=== PATIENT | male | born 1950 | race Caucasian/White ===

== ENCOUNTER 2017-05-15 14:52 | Emergency (ER) | payer MEDICARE, OTHER ==
--- NOTE | 2017-05-15 15:40 | ER Document Report ---
ED Medical Screen (RME) - General Chief Complaint: Abdominal Pain Stated Complaint: SORE THROAT,ABDOMINAL PAIN Time Seen by Provider: 05/15/17 15:39 Mode of Arrival: Ambulatory Information source: Patient TRAVEL OUTSIDE OF THE [place] IN LAST 30 DAYS: No - HPI Patient complains to provider of: abd pain; sore throat Onset: Other - pt. with penile implant i month ago with abd pain, hematuria, and fever in the past 1-2 days - Related Data Allergies/Adverse Reactions: No Known Allergies Allergy (Verified 05/15/17 14:53) Past Medical History Endocrine Medical History: Reports: Hx Diabetes Mellitus Type 2 Physical Exam - Vital signs Vitals: Temp Pulse Resp BP Pulse Ox 99.7 F 91 18 113/64 97 05/15/17 15:31 05/15/17 15:31 05/15/17 15:31 05/15/17 15:31 05/15/17 15:31 Course - Vital Signs Vital signs: Temp Pulse Resp BP Pulse Ox 99.7 F 91 18 113/64 97 05/15/17 15:31 05/15/17 15:31 05/15/17 15:31 05/15/17 15:31 05/15/17 15:31
[2017-05-15 16:29] LABS: ABSOLUTE LYMPHOCYTES (AUTO) 0.7 10^3/uL (0.5-4.7); ABSOLUTE MONOCYTES (AUTO) 0.9 10^3/uL (0.1-1.4); ABSOLUTE NEUT (AUTO) 9.8 10^3/uL (1.7-8.2); BASOPHILS % (AUTO) 0.4 % (0-2); EOSINOPHILS % (AUTO) 0.1 % (0-6); HEMATOCRIT 40.5 % (37.9-51.0); HEMOGLOBIN 13.4 g/dL (13.5-17.0); LYMPHOCYTES % (AUTO) 6.4 % (13-45); MEAN CORPUSCULAR HGB CONC 33.2 g/dL (32.0-36.0); MEAN CORPUSCULAR VOLUME 81 fl (80-97); MONOCYTES % (AUTO) 8.2 % (3-13); PLATELET COUNT 171 10^3/uL (150-450); RED BLOOD COUNT 4.98 10^6/uL (4.35-5.55); RED CELL DISTRIBUTION WIDTH 14.7 % (11.5-14.0); SEGMENTED NEUTROPHILS % (AUTO) 84.9 % (42-78); TOTAL CELLS COUNTED % (AUTO) 100 %; WHITE BLOOD COUNT 11.6 10^3/uL (4.0-10.5)
[2017-05-15 16:37] LABS: APPEARANCE,URINE SLIGHTLY-CLOUDY; BILIRUBIN,URINE NEGATIVE (NEGATIVE); COLOR,URINE YELLOW; GLUCOSE, URINE 150 mg/dL (NEGATIVE); KETONES,URINE NEGATIVE (NEGATIVE); LEUKOCYTE ESTERASE,URINE NEGATIVE (NEGATIVE); NITRITE,URINE NEGATIVE (NEGATIVE); PROTEIN,URINE 100 mg/dL (NEGATIVE); URINE SPECIFIC GRAVITY 1.024
[2017-05-15 16:46] LABS: ALANINE AMINOTRANSFERASE 25 U/L (21-72); ALBUMIN 4.1 g/dL (3.5-5.0); ALKALINE PHOSPHATASE 78 U/L (38-126); ANION GAP 13 (5-19); ASPARTATE AMINO TRANSFERASE 12 U/L (17-59); BILIRUBIN,DIRECT 0.2 mg/dL (0.0-0.4); BILIRUBIN,TOTAL 1.1 mg/dL (0.2-1.3); BLOOD UREA NITROGEN 21 mg/dL (7-20); CALCIUM 9.7 mg/dL (8.4-10.2); CARBON DIOXIDE 25 mmol/L (22-30); CHLORIDE 95 mmol/L (98-107); GLUCOSE 170 mg/dL (75-110); POTASSIUM 4.4 mmol/L (3.6-5.0); SODIUM 132.6 mmol/L (137-145); TOTAL PROTEIN 6.3 g/dL (6.3-8.2)
--- NOTE | 2017-05-15 16:51 | RADIOLOGY REPORT (SQ) ---
EXAM DESCRIPTION: ACUTE ABDOMEN SERIES COMPLETED DATE/TIME: 05/15/2017 4:31 pm REASON FOR STUDY: abd pain COMPARISON: None. NUMBER OF VIEWS: Three views. TECHNIQUE: Frontal chest, supine abdomen and upright/decubitus abdomen radiographic images acquired. LIMITATIONS: None. FINDINGS: CHEST: Lungs clear of infiltrates. FREE AIR: None. No abnormal gas collections. BOWEL GAS PATTERN: Nonobstructive pattern. No dilated loops or air fluid levels. CONSTIPATION: moderate. CALCIFICATIONS: No suspicious calcifications. HARDWARE: None in the abdomen. SOFT TISSUES: No gross mass or suggestion of organomegaly. BONES: No acute fracture. No worrisome bone lesions. OTHER: No other significant finding. IMPRESSION: NO RADIOGRAPHIC EVIDENCE FOR ACUTE ABDOMINAL DISEASE. CONSTIPATION. TECHNICAL DOCUMENTATION: JOB ID: [id number] [employer]- All Rights Reserved
[2017-05-15] MEDS ORDERED: SULFAMETHOXAZOLE/TRIMETHOPRIM 800-160 MG TABLET PO ONE (18:28)
[2017-05-15] MEDS ORDERED: CEPHALEXIN 500 MG CAPSULE PO ONE (18:28)
--- NOTE | 2017-05-15 18:30 | ER Document Report ---
ED General - General Chief Complaint: Abdominal Pain Stated Complaint: SORE THROAT,ABDOMINAL PAIN Time Seen by Provider: 05/15/17 15:39 Mode of Arrival: Ambulatory Notes: Patient is a 66-year-old male with a past medical history of BPH and a penile implant 1 month ago who presents with fever, difficulty urinating, as well as drainage from his surgical wound from the penile implant. Patient states that over the past 2 days he has noted particularly after waking up that there is a wet spot on the sheets which appears to be pus seeping from the wound edge from his scrotum. He notes a dull, constant, throbbing pain to the affected area. Nothing improves or worsens his symptoms. He has not yet contacted his urologist regarding his concerns. He was seen in urgent care and referred to the emergency department due to proteinuria in his urinalysis as well as lower abdominal pain. Patient denies any history of similar symptoms in the past. Nothing improves or worsens his pain. He denies any vomiting, diarrhea, cough, sputum production, headache or neck pain. TRAVEL OUTSIDE OF THE [place] IN LAST 30 DAYS: No - Related Data Allergies/Adverse Reactions: No Known Allergies Allergy (Verified 05/15/17 14:53) Past Medical History - General Information source: Patient - Social History Smoking Status: Never Smoker Chew tobacco use (# tins/day): No Frequency of alcohol use: Rare Drug Abuse: None Lives with: Spouse/Significant other Family History: Reviewed & Not Pertinent Patient has suicidal ideation: No Patient has homicidal ideation: No Endocrine Medical History: Reports: Hx Diabetes Mellitus Type 2 Renal/ Medical History: Denies: Hx Peritoneal Dialysis Review of Systems - Review of Systems Notes: Constitutional: Negative for fever. HENT: Negative for sore throat. Eyes: Negative for visual changes. Cardiovascular: Negative for chest pain. Respiratory: Negative for shortness of breath. Gastrointestinal: Positive for lower abdominal pain Genitourinary: Positive for urinary hesitancy as well as drainage from the scrotal wound Musculoskeletal: Negative for back pain. Skin: Negative for rash. Neurological: Negative for headaches, weakness or numbness. 10 point ROS negative except as marked above and in HPI. Physical Exam - Vital signs Vitals: Temp Pulse Resp BP Pulse Ox 99.7 F 91 18 113/64 97 05/15/17 15:31 05/15/17 15:31 05/15/17 15:31 05/15/17 15:31 05/15/17 15:31 Interpretation: Normal Notes: PHYSICAL EXAMINATION: GENERAL: Appears moderately uncomfortable but in no acute distress HEAD: Atraumatic, normocephalic. EYES: Pupils equal round and reactive to light, extraocular movements intact, sclera anicteric, conjunctiva are normal. ENT: nares patent, oropharynx clear without exudates. Moderately dry mucous membranes. NECK: Normal range of motion, supple without lymphadenopathy LUNGS: Breath sounds clear to auscultation bilaterally and equal. No wheezes rales or rhonchi. HEART: Regular rate and rhythm without murmurs ABDOMEN: Soft, mild tenderness to the suprapubic and right lower quadrants without rebound or guarding, no localized areas of tenderness. : There is a punctate area at the most anterior aspect of a midline incision on the scrotum that is seeping purulent drainage without surrounding erythema or fluctuance. Penile implant pump noted in scrotum. EXTREMITIES: Normal range of motion, no pitting or edema. No cyanosis. NEUROLOGICAL: No focal neurological deficits. Moves all extremities spontaneously and on command. PSYCH: Normal mood, normal affect. SKIN: Warm, Dry, normal turgor, no rashes or lesions noted. Course - Re-evaluation Re-evalutation: 05/15/17 18:29 Patient presents with an apparent superficial infection along the incisional line of his scrotum from a penile implant. There is discharge exuding from the area. Patient has had a fever up to 101F. He is overall otherwise nontoxic in appearance. Examination is also notable for right lower quadrant tenderness with associated rebound. Laboratories notable for mild leukocytosis but no other notable significant findings. Will obtain CT abdomen pelvis with IV contrast to evaluate for possible appendicitis for which have an overall low clinical suspicion as well as a possible tracking abscess from the scrotal site. 05/15/17 20:00 CT abdomen pelvis shows a normal appendix but a grossly distended bladder concerning for urinary retention particular given proteinuria. A Merrill catheter will be placed with a leg bag. Patient has been started on Bactrim and Keflex for the likely cutaneous scrotal infection. I have instructed both the patient and his that he urgently needs to follow-up with his urologist. At this time will discharge with return precautions and follow-up recommendations. Verbal discharge instructions given a the bedside and opportunity for questions given. Medication warnings reviewed. Patient is in agreement with this plan and has verbalized understanding of return precautions and the need for primary care follow-up in the next 24-72 hours. - Vital Signs Vital signs: Temp Pulse Resp BP Pulse Ox 98.4 F 78 16 122/61 93 05/15/17 20:41 05/15/17 20:41 05/15/17 20:41 05/15/17 20:41 05/15/17 20:41 - Laboratory Result Diagrams: 05/15/17 16:00 05/15/17 16:00 Laboratory results interpreted by me: 05/15/17 05/15/17 05/15/17 16:00 16:00 16:05 WBC 11.6 H Hgb 13.4 L RDW 14.7 H Seg Neutrophils % 84.9 H Lymphocytes % 6.4 L Absolute Neutrophils 9.8 H Sodium 132.6 L Chloride 95 L BUN 21 H Glucose 170 H AST 12 L Urine Protein 100 H Urine Glucose (UA) 150 H Urine Urobilinogen 2.0 H - Diagnostic Test Radiology reviewed: Reports reviewed Discharge - Discharge Clinical Impression: Scrotal infection, Urinary retention Surgical site infection Qualifiers: Encounter type: initial encounter Qualified Code(s): T81.4XXA - Infection following a procedure, initial encounter Fever Qualifiers: Fever type: unspecified Qualified Code(s): R50.9 - Fever, unspecified Condition: Good Disposition: HOME, SELF-CARE Additional Instructions: You have an infection on the surgical site on your scrotum from your penile implant. Your being started on 2 antibiotics to treat this including one called trimethoprim sulfamethoxazole and another called cephalexin. Please take exactly as directed until completion. Your CT scan shows that you are retaining a significant quantity of urine. A Merrill catheter with a leg bag has been placed to prevent kidney damage and allow your bladder to drain. You need to follow-up with your urologist urgently regarding these 2 issues and I recommend you contact them in the morning for an appointment within the next 48 hours. Please return to the emergency department immediately if you have worsening of your pain, are not passing urine from the catheter, have persistent vomiting, confusion, or any other symptoms that are worrisome to you. Prescriptions: Cephalexin Monohydrate [Keflex 500 mg Capsule] 500 mg PO QID #28 capsule Sulfamethoxazole/Trimethoprim [Bactrim Ds Tablet] 1 tab PO BID #14 tablet Referrals: RENÉ SHULTZ NP [Primary Care Provider] - Follow up tomorrow
--- NOTE | 2017-05-15 19:40 | RADIOLOGY REPORT (SQ) ---
EXAM DESCRIPTION: CT ABD/PELVIS WITH IV ONLY COMPLETED DATE/TIME: 05/15/2017 7:29 pm REASON FOR STUDY: rlq pain, penile pump infection COMPARISON: None. TECHNIQUE: CT scan of the abdomen and pelvis performed using helical scanning technique with dynamic intravenous contrast injection. No oral contrast. Images reviewed with lung, soft tissue, and bone windows. Reconstructed coronal and sagittal MPR images reviewed. Delayed images for evaluation of the urinary system also acquired. All images stored on PACS. All CT scanners at this facility use dose modulation, iterative reconstruction, and/or weight based d osing when appropriate to reduce radiation dose to as low as reasonably achievable (ALARA). [facility]: Dose Right [facility]: CareDose [facility]: Dose Right [facility]: Teradose 4D [facility]: Prezi CONTRAST TYPE AND DOSE: contrast/concentration: Isovue 370.00 mg/ml; Total Contrast Delivered: 100.0 ml; Total Saline Delivered: 70.0 ml RENAL FUNCTION: Creatinine 1.16 RADIATION DOSE: CT Rad equipment meets quality standard of care and radiation dose reduction techniq ues were employed. CTDIvol: 16.2 - 19.1 mGy. DLP: 2042 mGy-cm.. LIMITATIONS: None. FINDINGS: LOWER CHEST: No significant findings. No nodules or infiltrates. LIVER: Normal size. No masses. No dilated ducts. SPLEEN: Normal size. No focal lesions. PANCREAS: No masses. No significant calcifications. No adjacent inflammation or peripancreatic fluid collections. Pancreatic duct not dilated. GALLBLADDER: No identified stones by CT criteria. No inflammatory changes to suggest cholecystitis. ADRENAL GLANDS: No significant masses or asymmetry. RIGHT KIDNEY AND URETER: No solid masses. No significant calcifications. No hydronephrosis or hyd roureter. LEFT KIDNEY AND URETER: No solid masses. No significant calcifications. No hydronephrosis or hydr oureter. AORTA AND VESSELS: No aneurysm. No dissection. Renal arteries, SMA, celiac without stenosis. RETROPERITONEUM: No retroperitoneal adenopathy, hemorrhage or masses. BOWEL AND PERITONEAL CAVITY: No masses or inflammatory changes. No free fluid or peritoneal masses. APPENDIX: Normal. PELVIS: The bladder is distended. Enlarged prostate gland. No significant finding in the penile pum p present for age. No abnormal fluid collections. ABDOMINAL WALL: No masses. No hernias. BONES: Diffuse degenerative changes. OTHER: No other significant finding. IMPRESSION: Markedly distended bladder. Enlarged prostate. Penile pump reservoir appears unremarkable. TECHNICAL DOCUMENTATION: JOB ID: [id number] Quality ID # [id number]: Final reports with documentation of one or more dose reduction techniques (e.g., Au tomated exposure control, adjustment of the mA and/or kV according to patient size, use of iterative reconstruction technique) 2010 [employer]- All Rights Reserved
[2017-05-15] MEDS ORDERED: LIDOCAINE 2% URO-JET 5 ML KIT MM ONE (20:23)
[2017-05-15 20:42] VITALS: BP 122/61
== END 2017-05-15 20:46 | disposition home or self-care (01) ==
LOC: ER 14:52
DX: T81.4XXA Infection following a procedure, initial encounter (principal); N49.2 Inflammatory disorders of scrotum; Y82.8 Other medical devices associated with adverse incidents; Y83.8 Other surgical procedures as the cause of abnormal reaction of the patient, or of later complication, without mention of misadventure at the time of the procedure; Z96.0 Presence of urogenital implants; N40.1 Benign prostatic hyperplasia with lower urinary tract symptoms; R39.11 Hesitancy of micturition; R33.8 Other retention of urine; E11.9 Type 2 diabetes mellitus without complications
CPT/HCPCS: 99284; 36415; 87040; 87070; 87086; 87880; 85025; 80053; 81001; 74022; 74177; A9270 ×2

== ENCOUNTER 2017-11-22 09:50 | Day surgery (SDC) | payer MEDICARE, OTHER ==
[~2017-11-22 09:50] MED LIST: KETOROLAC TROMETHAMINE 0.45% 4 DROP/0.4 ML DROPERETTE OD PRN
[2017-11-22] MEDS: TETRACAINE HCL 0.5% OPH SOLN 0.6 ML DROPERETTE OD PRN ×2 (10:43→11:10)
[2017-11-22] MEDS: CYCLOPENTOLATE 0.2%/PHENYLEPHRINE 1% OPH SOLN 2 ML OD PRN ×3 (10:44→11:08)
[2017-11-22] MEDS: TROPICAMIDE 1% OPH SOLN 3 ML OD PRN ×3 (10:44→11:08)
[2017-11-22] MEDS: BESIFLOXACIN HCL 0.6% OPH SUSP 5 ML BOTTLE OD PRN ×4 (10:45→12:02)
[2017-11-22] MEDS ORDERED: MIDAZOLAM 2 MG/2 ML INJ ONE (11:03)
[2017-11-22] MEDS ORDERED: FENTANYL CITRATE INJ/PF 100 MCG/2 ML AMPUL ONE (11:03)
[2017-11-22] MEDS: BUPIVACAINE HCL 0.75% INJ/PF (7.5 MG/1 ML) 10 ML SDV OD PRN ×2 (11:39)
[2017-11-22] MEDS: LIDOCAINE 4% INJ/PF (40 MG/ML) 5 ML AMPUL OD PRN ×2 (11:39)
[2017-11-22] MEDS: EPINEPHRINE INJ/PF 1 MG/1 ML AMPULE ONE ×2 (11:44)
[2017-11-22] MEDS: LIDOCAINE 1% INJ-PF (10 MG/ML) 30 ML SDV ONE ×2 (11:47)
[2017-11-22] MEDS: CHONDR SU A NA/HYALUR INTRAOC KIT (SURGICARE) ONE ×2 (11:50)
--- NOTE | 2017-11-22 13:46 | [facility] OPERATIVE REPORT E ---
[facility] Operative Report NAME: WALESKA PINEDA AGE: 67Y DATE OF SURGERY: 11/22/2017 ROOM: PREOPERATIVE DIAGNOSIS: 1. Cataract, right eye. 2. Astigmatism, right eye. POSTOPERATIVE DIAGNOSIS: 1. Cataract, right eye. 2. Astigmatism, right eye. OPERATION: Phacoemulsification with Torque intraocular implant, right eye. SURGEON: LEVI MCLAIN M.D. ANESTHESIA: Topical with MAC. INDICATIONS FOR SURGERY: Difficulty driving at night. Best corrected visual acuity 20/50. PROCEDURE: The patient was brought to the Operating Room and placed on the operative table. Following tetracaine drops, topical anesthesia was administered. This consisted of instrument wipe pledgets soaked in a solution of 4% Xylocaine mixed with 0.75% Marcaine in a 1:2 ratio. A 2 x 1 cm pledget was placed in the superior fornix. A 1 x 1 cm pledget was placed in the inferior fornix. The eye was patched shut for 5 minutes. The patch was removed. The eye was sterilely prepped and draped in the usual manner. Lid speculum was placed in the eye. The pledgets were removed. 4-0 black silk sutures were placed around the superior and the inferior rectus muscles to be used as traction. A conjunctival peritomy was made at the 10 o'clock position. Hemostasis was obtained with bipolar cautery. A posterior limbal groove was created using a crescent knife and dissected anteriorly towards the cornea. A sharp point blade was used to create a paracentesis site at the 2 o'clock position. A 2.4 mm keratome was used to enter the anterior chamber through the groove. Viscoelastic was injected into the anterior chamber. An anterior capsulotomy was performed using Utrata forceps in a capsulorrhexis fashion. Hydrodissection and hydrodelineation were performed. Phacoemulsification was performed in xfivsz-xlq-abldcgc technique. A total of 46 seconds phaco time was used. Following this, the I/A unit was used to remove residual cortex. Viscoelastic was injected into the capsular bag. Intraocular lens model [id number], 10.5 diopters, serial number [id number] was placed in the capsular bag. The I/A unit was used to remove residual viscoelastic. The wound was seen to be watertight under high and low pressure, and no sutures were placed. The intraocular lens was well centered. The pressure was adjusted in the eye to normal pressure. The 4-0 black silk sutures and lid speculum were removed. The eye was shielded after Besivance drops were placed. The patient tolerated the procedure well and was sent to the Recovery Room in good condition. Prior to the surgery, the patient was placed in the sitting position and a 0270, 180 axis of axis of the eye was marked using a marking level. Prior to placing the lens implant, the 120 degree axis of the eye was marked using the previously marked sites as referenced. The lens was centered at this axis. DICTATING PHYSICIAN: LEVI MCLAIN M.D. [id number] PHY#: [id number] ID: [id number] JOB#: [id number] ACCT: [id number] cc:LEVI MCLAIN M.D. >
--- NOTE | 2017-11-22 13:46 | [facility] DISCHARGE SUMMARY E ---
[facility] Discharge Summary NAME: WALESKA PINEDA AGE: 67Y ADMITTED: 11/22/2017 DISCHARGED: 11/22/2017 FINAL DIAGNOSIS: 1. Cataract, right eye. 2. Astigmatism, right eye. HOSPITAL COURSE: The patient is a 67-year-old gentleman who underwent uneventful cataract extraction with Torque intraocular lens implant right eye on 11/22/2017. He will be discharged to home. He is instructed to resume preoperative medications, to take Tylenol as needed for discomfort, to keep his eye shielded, to use Durezol, Prolensa, and Besivance at 3 p.m. and 8 p.m., and to follow up in my office in 1 day. DICTATING PHYSICIAN: LEVI MCLAIN M.D. [id number] PHY#: [id number] ID: [id number] JOB#: [id number] ACCT: [id number] cc:LEVI MCLAIN M.D. >
== END 2017-11-22 12:40 | disposition home or self-care (01) ==
LOC: SC 09:50
PROVIDERS: ATTEND Ophthalmology
DX: H25.813 Combined forms of age-related cataract, bilateral (principal); E11.3291 Type 2 diabetes mellitus with mild nonproliferative diabetic retinopathy without macular edema, right eye; H52.201 Unspecified astigmatism, right eye; I10 Essential (primary) hypertension; Z87.891 Personal history of nicotine dependence; Z79.84 Long term (current) use of oral hypoglycemic drugs; Z79.891 Long term (current) use of opiate analgesic
CPT/HCPCS: 66984; 82962; V2787; J2250; J3490 ×4; A9270; J0171; J3010; 142

== ENCOUNTER 2017-12-13 10:19 | Day surgery (SDC) | payer MEDICARE, OTHER ==
[~2017-12-13 10:19] MED LIST changes: -KETOROLAC TROMETHAMINE 0.45% 4 DROP/0.4 ML DROPERETTE OD PRN; +KETOROLAC TROMETHAMINE 0.45% 4 DROP/0.4 ML DROPERETTE OS PRN
[2017-12-13] MEDS: TETRACAINE HCL 0.5% OPH SOLN 0.6 ML DROPERETTE OS PRN ×2 (12:09→12:35)
[2017-12-13] MEDS: BESIFLOXACIN HCL 0.6% OPH SUSP 5 ML BOTTLE OS PRN ×4 (12:10→13:21)
[2017-12-13] MEDS: TROPICAMIDE 1% OPH SOLN 3 ML OS PRN ×3 (12:10→12:29)
[2017-12-13] MEDS: CYCLOPENTOLATE 0.2%/PHENYLEPHRINE 1% OPH SOLN 2 ML OS PRN ×3 (12:10→12:29)
[2017-12-13] MEDS ORDERED: MIDAZOLAM 2 MG/2 ML INJ ONE (12:34)
[2017-12-13] MEDS: LIDOCAINE 4% INJ/PF (40 MG/ML) 5 ML AMPUL OS PRN ×2 (12:44)
[2017-12-13] MEDS: BUPIVACAINE HCL 0.75% INJ/PF (7.5 MG/1 ML) 10 ML SDV OS PRN ×2 (12:44)
[2017-12-13] MEDS: CHONDR SU A NA/HYALUR INTRAOC KIT (SURGICARE) ONE ×2 (13:04)
[2017-12-13] MEDS: EPINEPHRINE INJ/PF 1 MG/1 ML AMPULE ONE ×2 (13:04)
[2017-12-13] MEDS: LIDOCAINE 1% INJ-PF (10 MG/ML) 30 ML SDV ONE ×2 (13:07)
--- NOTE | 2017-12-13 13:55 | [facility] OPERATIVE REPORT E ---
[facility] Operative Report NAME: WALESKA PINEDA AGE: 67Y DATE OF SURGERY: 12/13/2017 ROOM: [facility] [place] Operative Report PREOPERATIVE DIAGNOSIS: CATARACT, LEFT EYE. POSTOPERATIVE DIAGNOSIS: CATARACT, LEFT EYE. PROCEDURE PERFORMED: PHACOEMULSIFICATION WITH POSTERIOR CHAMBER INTRAOCULAR LENS, LEFT EYE. SURGEON: LEVI MCLAIN MD ANESTHESIA: TOPICAL WITH MAC. INDICATIONS FOR SURGERY: Difficulty reading and driving. Best corrected visual acuity 20/50. PROCEDURE: The patient was brought to the Operating Room and placed on the operative table. Prior to surgery, the patient was placed in the seated position and the [id number] *------* was marked on the eye. Prior to placing the lens plant, the 63 degree axis was marked on the eye and a lens was centered at this axis. Following tetracaine drops, topical anesthesia was administered. This consisted of instrument wipe pledgets soaked in a solution of 4% Xylocaine mixed with 0.75% Marcaine in a 1:2 ratio. A 2 x 1 cm pledget was placed in the superior fornix. A 1 x 1 cm pledget was placed in the inferior fornix. The eye was patched shut for 5 minutes. The patch was removed. The eye was sterilely prepped and draped in the usual manner. Lid speculum was placed in the eye. The pledgets were removed. 4-0 black silk sutures were placed around the superior and the inferior rectus muscles to be used as traction. A conjunctival peritomy was made at the 10 o'clock position. Hemostasis was obtained with bipolar cautery. A posterior limbal groove was created using a crescent knife and dissected anteriorly towards the cornea. A sharp point blade was used to create a paracentesis site at the 2 o'clock position. A 2.4 mm keratome was used to enter the anterior chamber through the groove. Viscoelastic was injected into the anterior chamber. An anterior capsulotomy was performed using Utrata forceps in a capsulorrhexis fashion. Hydrodissection and hydrodelineation were performed. Phacoemulsification was performed in weozuc-cgo-zvqbnmp technique. A total of 4.50 CDE phaco time was used. Following this, the I/A unit was used to remove residual cortex. Viscoelastic was injected into the capsular bag. Intraocular lens model [id number], 13.5 diopters, serial number [id number] was placed in the capsular bag. The I/A unit was used to remove residual viscoelastic. The wound was seen to be watertight under high and low pressure, and no sutures were placed. The intraocular lens was well centered. The pressure was adjusted in the eye to normal pressure. The 4-0 black silk sutures and lid speculum were removed. The eye was shielded after Besivance drops were placed. The patient tolerated the procedure well and was sent to the Recovery Room in good condition. DICTATING PHYSICIAN: LEVI MCLAIN M.D. DICTATING PHYSICIAN: LEVI MCLAIN M.D. [id number] PHY#: [id number] ID: [id number] JOB#: [id number] ACCT: [id number] cc:LEVI MCLAIN M.D. >
--- NOTE | 2017-12-13 14:01 | [facility] DISCHARGE SUMMARY E ---
[facility] Discharge Summary NAME: WALESKA PINEDA AGE: 67Y ADMITTED: 12/13/2017 DISCHARGED: HOSPITAL COURSE: The patient is a 67-year-old gentleman who underwent uneventful cataract extraction with Toric intraoperative lens implant left eye on 12/13/2017. He will be discharged to home. He is instructed to resume preoperative medications. Take Tylenol as needed for discomfort. Keep his eye shielded. He is to use Vigamox, Ilevro, and Durezol at 3:00 p.m. and 8:00 p.m., and to follow up in my office in 1 day. DICTATING PHYSICIAN: LEVI MCLAIN M.D. [id number] PHY#: [id number] ID: [id number] JOB#: [id number] ACCT: [id number] cc:LEVI MCLAIN M.D. >
--- NOTE | 2017-12-13 15:55 | [facility] DISCHARGE SUMMARY E ---
[facility] Discharge Summary NAME: WALESKA PINEDA AGE: 67Y ADMITTED: 12/13/2017 DISCHARGED: 12/13/2017 FINAL DIAGNOSIS: CATARACT, LEFT EYE. HOSPITAL COURSE: The patient is a 67-year-old gentleman who underwent uneventful cataract extraction with intraocular lens implant, left eye on 12/13/2017. He will be discharged to home. He is instructed to resume preoperative medications, take Tylenol as needed for discomfort, to keep his eye shielded, to use Ilevro, Durezol, and Vigamox at 3 p.m. and 8 p.m., and to follow up in my office in 1 day. DICTATING PHYSICIAN: LEVI MCLAIN M.D. [id number] PHY#: [id number] ID: [id number] JOB#: [id number] ACCT: [id number] cc:LEVI MCLAIN M.D. >
--- NOTE | 2017-12-13 15:56 | [facility] OPERATIVE REPORT E ---
[facility] Operative Report NAME: WALESKA PINEDA AGE: 67Y DATE OF SURGERY: 12/13/2017 ROOM: PREOPERATIVE DIAGNOSIS: CATARACT, LEFT EYE. POSTOPERATIVE DIAGNOSIS: CATARACT, LEFT EYE. PROCEDURE PERFORMED: PHACOEMULSIFICATION WITH TORIC INTRAOCULAR LENS IMPLANT, LEFT EYE. SURGEON: LEVI MCLAIN MD ANESTHESIA: TOPICAL WITH MAC. INDICATIONS FOR SURGERY: Difficulty reading and driving. Best corrected visual acuity 20/50. PROCEDURE: The patient was brought to the Operating Room and placed on the operative table. Patient was placed in a seated position with 0270 and 180 degree axis where the eye was marked using a marking level. Following tetracaine drops, topical anesthesia was administered. This consisted of instrument wipe pledgets soaked in a solution of 4% Xylocaine mixed with 0.75% Marcaine in a 1:2 ratio. A 2 x 1 cm pledget was placed in the superior fornix. A 1 x 1 cm pledget was placed in the inferior fornix. The eye was patched shut for 5 minutes. The patch was removed. The eye was sterilely prepped and draped in the usual manner. Lid speculum was placed in the eye. The pledgets were removed. 4-0 black silk sutures were placed around the superior and the inferior rectus muscles to be used as traction. A conjunctival peritomy was made at the 10 o'clock position. Hemostasis was obtained with bipolar cautery. A posterior limbal groove was created using a crescent knife and dissected anteriorly towards the cornea. A sharp point blade was used to create a paracentesis site at the 2 o'clock position. A 2.4 mm keratome was used to enter the anterior chamber through the groove. Viscoelastic was injected into the anterior chamber. An anterior capsulotomy was performed using Utrata forceps in a capsulorrhexis fashion. Hydrodissection and hydrodelineation were performed. Phacoemulsification was performed in gcgfld-nag-zamiehl technique. A total of 4.50 CBE phaco time was used. Prior to the lens implant, the 63 max axis of the eye was marked using a marking level, using the previously marked *------*. The lens was placed at the 63 degree axis. Following this, the I/A unit was used to remove residual cortex. Viscoelastic was injected into the capsular bag. Intraocular lens model [id number], 13.5 diopters, serial number [id number] was placed in the capsular bag. The I/A unit was used to remove residual viscoelastic. The wound was seen to be watertight under high and low pressure, and no sutures were placed. The intraocular lens was well centered. The pressure was adjusted in the eye to normal pressure. The 4-0 black silk sutures and lid speculum were removed. The eye was shielded after Besivance drops were placed. The patient tolerated the procedure well and was sent to the Recovery Room in good condition. DICTATING PHYSICIAN: LEVI MCLAIN M.D. DICTATING PHYSICIAN: LEVI MCLAIN M.D. [id number] PHY#: [id number] ID: [id number] JOB#: [id number] ACCT: [id number] cc:LEVI MCLAIN M.D. >
[2017-12-14] MEDS ORDERED: LIDOCAINE 4% INJ/PF (40 MG/ML) 5 ML AMPUL OS PRN (05:00)
[2017-12-14] MEDS ORDERED: TROPICAMIDE 1% OPH SOLN 3 ML OS PRN (05:00)
[2017-12-14] MEDS ORDERED: KETOROLAC TROMETHAMINE 0.45% 4 DROP/0.4 ML DROPERETTE OS PRN (05:00)
[2017-12-14] MEDS ORDERED: BESIFLOXACIN HCL 0.6% OPH SUSP 5 ML BOTTLE OS PRN (05:00)
[2017-12-14] MEDS ORDERED: BUPIVACAINE HCL 0.75% INJ/PF (7.5 MG/1 ML) 10 ML SDV OS PRN (05:00)
[2017-12-14] MEDS ORDERED: CYCLOPENTOLATE 0.2%/PHENYLEPHRINE 1% OPH SOLN 2 ML OS PRN (05:00)
== END 2017-12-13 13:04 | disposition home or self-care (01) ==
LOC: SC 10:19
PROVIDERS: ATTEND Ophthalmology
DX: H25.812 Combined forms of age-related cataract, left eye (principal); Z96.1 Presence of intraocular lens; I10 Essential (primary) hypertension; Z79.899 Other long term (current) drug therapy; E11.9 Type 2 diabetes mellitus without complications; Z79.84 Long term (current) use of oral hypoglycemic drugs
CPT/HCPCS: 66984; 82962; V2787; J2250; J3490 ×4; A9270; J0171; 142